=== PATIENT | male | born 1965 | race Caucasian/White ===

== ENCOUNTER → 2020-06-28 13:22 | Outpatient (CLI) | payer BC, SELFPAY ==
--- NOTE | ~2020-06-28 | XR_ITS ---
EXAMINATION: XR chest 2V DATE: 06/28/2020 13:32 INDICATION: Dyspnea TECHNIQUE: PA and lateral views of the chest were obtained. COMPARISON: Chest radiograph dated 11/14/2014 FINDINGS: Patchy airspace opacities in the bilateral mid and lower lung zones concerning for pneumonia. No pleu ral effusion or pneumothorax. The cardiomediastinal silhouette is normal. IMPRESSION: 1. Patchy airspace opacities throughout the bilateral mid and lower lung zones concerning for pneumon ia. Reviewed, dictated and finalized at location A. NICAL MAINTENANCE SPECIALIST IMPRESSION: 1. Patchy airspace opacities throughout the bilateral mid and lower lung zones concerning for pneumonia.
== END ==
PROVIDERS: PCP Family Medicine; Visit Provider Nurse Practitioner Family
DX: R05 Cough (principal); R06.00 Dyspnea, unspecified; R91.8 Other nonspecific abnormal finding of lung field
CPT/HCPCS: 71046

== ENCOUNTER → 2020-07-06 15:02 | Outpatient (CLI) | payer BC, SELFPAY ==
--- NOTE | ~2020-07-06 | XR_ITS ---
XR chest 2V DATE: 07/06/2020 15:22 INDICATION: Pneumonia. Cough, shortness of breath. TECHNIQUE: PA and lateral views COMPARISON: 06/28/2022 view chest FINDINGS: There are patchy infiltrates of the mid and lower lung zones, mildly improved since 020. Normal heart size. No hilar or mediastinal enlargement. No pleural effusion or pulmonary vascular con gestion or pneumothorax. IMPRESSION: Mild improvement of patchy bilateral mid and lower lung infiltrates Reviewed, dictated and finalized at location B. E REPAIRER
== END ==
PROVIDERS: PCP Family Medicine; Visit Provider Nurse Practitioner Family
DX: J18.9 Pneumonia, unspecified organism (principal); R91.8 Other nonspecific abnormal finding of lung field
CPT/HCPCS: 71046

== ENCOUNTER → 2020-07-21 12:48 | Outpatient (CLI) | payer BC, SELFPAY ==
--- NOTE | ~2020-07-21 | XR_ITS ---
EXAMINATION: XR chest 2V DATE: 07/21/2020 13:09 INDICATION: COVID-19 pneumonia. TECHNIQUE: Frontal and lateral views of the chest were obtained. COMPARISON: Chest 2 views 07/06/2020, CT abdomen and pelvis 06/29/2016 FINDINGS: There are mild airspace opacities in right midlung zone and left lower lung zone. No pleura l effusion or pneumothorax. The heart size is normal. IMPRESSION: 1. Mild airspace opacities in right midlung zone and left lower lung zone with interval improvement, consistent with COVID-19 pneumonia. Reviewed, dictated and finalized at location B. BED STITCHER
== END ==
PROVIDERS: PCP Family Medicine; Visit Provider Nurse Practitioner Family
DX: J18.9 Pneumonia, unspecified organism (principal); U07.1 COVID-19; R91.8 Other nonspecific abnormal finding of lung field
CPT/HCPCS: 71046

== ENCOUNTER → 2020-08-03 12:52 | Outpatient (CLI) | payer BC, SELFPAY ==
--- NOTE | ~2020-08-03 | XR_ITS ---
XR chest 2V DATE: 08/03/2020 13:10 INDICATION: Cough. Pneumonia. TECHNIQUE: PA and lateral views COMPARISON: 07/21/2020 2 view chest 07/06/2020 2 view chest FINDINGS: Normal heart size. No hilar or mediastinal enlargement. There is nearly complete clearing o f bilateral infiltrates since 07/06/2020. No pleural effusion or pulmonary vascular congestion or pneumothorax. IMPRESSION: Nearly complete resolution of bilateral infiltrates since 07/06/2020 Reviewed, dictated and finalized at location A. RGLASS BOAT PARTS FINISHER
== END ==
PROVIDERS: PCP Family Medicine; Visit Provider Nurse Practitioner Family
DX: J18.9 Pneumonia, unspecified organism (principal); R05 Cough
CPT/HCPCS: 71046

== ENCOUNTER 2023-08-07 21:03 | Emergency (ER) | payer SELFPAY ==
--- NOTE | ~2023-08-07 | XR_ITS ---
EXAMINATION: XR chest 2V DATE: 08/07/2023 21:33 INDICATION: Chest pain. TECHNIQUE: Frontal and lateral views of the chest were obtained. COMPARISON: Chest 2 views 08/03/2020, CT abdomen and pelvis 06/29/2016 FINDINGS: There is no pneumonia, pleural effusion, or pneumothorax. The heart size is normal. IMPRESSION: 1. No acute cardiopulmonary disease. Reviewed, dictated and finalized at location E. NING SPECIALIST
--- NOTE | 2023-08-07 21:05 | ECG_ITS ---
Measurements Intervals [place] Rate: 94 P: 31 NE: 152 QRS: 52 QRSD: 102 T: 28 QT: 344 QTc: 432 Interpretive Statements SINUS RHYTHM WITH OCCASIONAL VENTRICULAR PREMATURE COMPLEXES BORDERLINE ECG NO PREVIOUS ECG AVAILABLE FOR COMPARISON Electronically Signed On 08-08-2023 15:28:05 FLEET SALESPERSON by Milton Reagan M.D.
[2023-08-07 21:06] VITALS: BP 150/92; PULSE 94; RESP 16; TEMP 36.6; O2SAT 97
[2023-08-07 21:28] LABS: Basophils Percent Auto 0.4 % (0.2-1.2); Eosinophils Absolute Auto 0.4 K/mm3 (0-0.3); Eosinophils Percent Auto 4.1 % (0-4.4); Hematocrit 46.5 % (42.0-52.0); Hemoglobin 16.2 g/dL (14.0-18.0); Immature Granulocyte Absolute 0.02 K/mm3 (0.00-0.031); Immature Granulocyte Percent A 0.2 % (0-0.5); Lymphocytes Absolute Auto 3.27 K/mm3 (0.9-3.2); Lymphocytes Percent Auto 32.6 % (18.3-44.2); Mean Corpuscular HGB Conc 34.8 g/dl (32-36); Mean Corpuscular Hemoglobin 32.3 pg (26-34); Mean Corpuscular Volume 92.8 fl (80-100); Mean Platelet Volume 8.8 fl (7.4-10.4); Monocytes Absolute Auto 0.7 K/mm3 (0.1-0.6); Monocytes Percent Auto 6.7 % (2.6-8.5); Neutrophils Absolute Auto 5.6 K/mm3 (1.3-6.7); Platelet Count Result 266 k/mm3 (150-375); Red Blood Count 5.01 M/mm3 (4.6-6.20)
[2023-08-07 21:37] LABS: Alanine Aminotransferase 43 U/L (6-50); Albumin Level 4.6 g/dL (3.5-5.1); Alkaline Phosphatase 88 U/L (38-126); Anion Gap 8 mmol/L (8-16); Aspartate Amino Transferase 42 U/L (17-59); Bilirubin,Total 0.5 mg/dL (0.2-1.3); Blood Urea Nitrogen 24 mg/dL (9-20); Calcium 9.8 mg/dL (8.4-10.2); Carbon Dioxide 30 mmol/L (22-30); Chloride 100 mmol/L (98-107); Estimated CRCL calculation 79 ml/min; Estimated Glomerular Filt Rate > 60; Glucose 135 mg/dL (65-110); Lipase 164 U/L (23-300); Potassium 3.4 mmol/L (3.4-5.0); Sodium 138 mmol/L (137-145)
[2023-08-07 21:38] LABS: INR 0.9; Prothrombin Time 12.3 Seconds (11.1-14.7)
[2023-08-07 21:39] LABS: Partial Thromboplastin Time 28.3 SECONDS (22.3-36.8)
[2023-08-07 21:49] LABS: Troponin I < 0.012 ng/mL (0.000-0.034)
[2023-08-07 23:54] VITALS: BP 130/75; PULSE 87; RESP 16; O2SAT 99
[2023-08-08 01:25] LABS: Troponin I < 0.012 ng/mL (0.000-0.034)
--- NOTE | 2023-08-08 01:27 | ED.GENADULT ---
HPI - General Adult General Chief complaint: Chest Pain Stated complaint: chest pain Time Seen by Provider: 08/08/23 01:09 History of Present Illness HPI narrative: Patient is a 58-year-old gentleman who presents emergency department with chief complaint of chest pain. Patient reports that this afternoon around 5:00 p.m. started him some discomfort on the left side of his chest. Patient states he had limited tingling in the left arm this subsequently resolved and discomfort in his chest has resolved. Patient does report that he has history of hypertension 9 cholesterol but also does have history of reflux the patient reports no prior history of cardiac disease Related Data Allergies Allergy/AdvReac Type Severity Reaction Status Date / Time No Known Allergies Allergy Unknown Verified 08/07/23 21:04 Review of Systems Review of Systems: A 10 system review of systems was completed on the patient and is negative except for what is stated in the HPI. Nursing and ancillary documentation was reviewed. PMFSH Past Medical History Medical History BMI 29.0-29.9,adult BMI greater than 30 Epidermal cyst Essential (primary) hypertension Lipoma of back Mass on back Shingles Strain of left trapezius muscle Testicular hypofunction Family History Family History Father Family history of type 2 diabetes mellitus Family history of lung cancer Mother Cerebrovascular accident Sibling , of Covid-19 06/25/2020 COVID-19 Other Diabetes mellitus Family history of cardiovascular disease Hypertension Social History Social History Smoking status: Never smoker Second hand tobacco smoke exposure: No Alcohol intake: former Substance use: never Substance use type: does not use Lack of Transportation: No Lack of Food: Never True Current Housing: I Have Housing Concerned About Future Housing: No Difficulty Paying Gas/Electric Bills: No Difficulty Paying for Meds: No Currently Unemployed: No Education: High School Diploma/GED Difficulty w/ Childcare or Family Care: No Living arrangements: with family Occupation/Education: retired 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 HEAD: Normocephalic, atraumatic. EYES: PERRLA and EOMI. ENT: Nares clear, no rhinorrhea or epistaxis. Mucous membranes moist. NECK: Supple. CHEST: Clear to auscultation. No respiratory distress. HEART: Regular rate and rhythm. No murmur heard. Normal peripheral pulses. ABDOMEN: Soft, nontender, nondistended, normal active bowel sounds. EXTREMITIES: Normal range of motion. No edema. SKIN: Warm, dry, no rash. NEURO: No focal deficits. Alert and oriented x3. PSYCH: Normal mood and affect. Course Vital Signs Vital signs: Vital Signs Temperature 36.6 C 08/07/23 21:06 Pulse Rate 94 08/07/23 21:06 Respiratory Rate 16 08/07/23 21:06 Blood Pressure 150/92 H 08/07/23 21:06 Pulse Oximetry 97 08/07/23 21:06 Oxygen Delivery Room Air 08/07/23 21:06 Temperature 36.6 C 08/07/23 21:06 Pulse Rate 87 08/07/23 23:54 Respiratory Rate 16 08/07/23 23:54 Blood Pressure 130/75 08/07/23 23:54 Pulse Oximetry 99 08/07/23 23:54 Oxygen Delivery Room Air 08/07/23 21:06 Medical Decision Making MDM Narrative Medical decision making narrative: Differential diagnosis includes atypical chest pain, ACS, reflux, esophageal spasm EKG showed no acute ischemic changes. Chest x-ray showed no focal findings Laboratory studies were obtained which showed a 0 hour troponin of less than 0.0123 hour delta troponin was negative
[2023-08-08 02:03] VITALS: BP 120/76; PULSE 68; RESP 16; O2SAT 96
== END 2023-08-08 02:06 | disposition home or self-care (01) ==
PROVIDERS: Emergency Provider Emergency Medicine; PCP Family Medicine
DX: R07.89 Other chest pain (principal); I10 Essential (primary) hypertension; I49.3 Ventricular premature depolarization
CPT/HCPCS: 36415; 71046; 80053; 83690; 84484; 85025; 85610; 85730; 93005; 99284